=== PATIENT | male | born 1950 | race Two or more races ===

== ENCOUNTER 2022-12-11 17:06 | Outpatient (CLI) | payer OTHER | END 2022-12-11 17:09 | disposition home or self-care (01) | LOC: EDBD 17:06 → LAB 17:06 | PROVIDERS: ATTEND Urology | DX: R97.20 Elevated prostate specific antigen [PSA] (principal) ==

== ENCOUNTER 2022-12-25 07:17 | Outpatient (CLI) | payer OTHER | END 2022-12-25 14:21 | disposition home or self-care (01) | LOC: SONOGRAMA 07:17 | PROVIDERS: ATTEND Urology | DX: D29.1 Benign neoplasm of prostate (principal); R97.20 Elevated prostate specific antigen [PSA] ==